=== PATIENT | female | born 1965 | race Caucasian/White ===

== ENCOUNTER 2018-01-15 07:24 | Day surgery (SDC) | payer OTHER ==
--- NOTE | 2018-01-14 15:32 | RAD REPORT ---
EXAM DESCRIPTION: RAD - Chest Pa And Lat (2 Views) - 01/14/2018 3:20 pm CLINICAL HISTORY: preop Chest pain. COMPARISON: No comparisons FINDINGS: The lungs are clear. The heart is normal in size. No displaced fractures. IMPRESSION: No acute or concerning finding suspected.
[2018-01-14 15:38] LABS: Absolute Monocytes 0.6 K/uL (0.1-1.3); Absolute Neutrophil 3.2 K/uL (1.8-8.0); Basophils % 0.5 % (0-1.3); Eosinophils % 3.3 % (0-4.4); Hematocrit 36.7 % (36.0-45.0); Lymphocytes % 33.5 % (15.3-44.8); MCH 31.1 pg (27.0-35.0); MCV 92.2 fL (80-100); MPV 7.8 fL (7.6-11.3); Monocytes % 9.5 % (3.3-12.3); RBC Red Blood Cell Count 3.99 M/uL (3.86-4.86)
[2018-01-14 15:52] LABS: ALT/SGPT 19 U/L (12-78); AST/SGOT 13 U/L (15-37); Albumin 3.9 g/dL (3.4-5.0); Alkaline Phosphatase 61 U/L (45-117); Amylase Level 36 U/L (25-115); BUN Blood Urea Nitrogen 13 mg/dL (7-18); Bicarbonate 31 mmol/L (21-32); Bilirubin Direct 0.2 mg/dL (0-0.2); Bilirubin Total 0.7 mg/dL (0.2-1.0); Glucose Level 84 mg/dL (74-106); Lipase 158 U/L (73-393); Potassium 3.4 mmol/L (3.5-5.1); Protein, Total 6.6 g/dL (6.4-8.2); Sodium Level 144 mmol/L (136-145)
--- NOTE | 2018-01-15 06:53 | EKG ---
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
[2018-01-15] MEDS ORDERED: Ringers Lactate 1,000 ML IV ONE ×2 (08:35→10:04)
[2018-01-15] MEDS ORDERED: CEFOXITIN/SWI 1gm 1 GM/10 ML SYR ONE (08:35)
[2018-01-15] MEDS ORDERED: MIDAZOLAM HCL 2 MG/2 ML INJ ONE (08:57)
[2018-01-15] MEDS ORDERED: PROPOFOL 200 MG/20 ML VIAL IV ONE (08:57)
[2018-01-15] MEDS ORDERED: ROCURONIUM 50 MG/5 ML VIAL IV ONE (08:58)
[2018-01-15] MEDS ORDERED: LIDOCAINE 2% MPF 5 ML VIAL ONE (08:58)
[2018-01-15] MEDS ORDERED: FENTANYL CITR 100 MCG/2 ML ONE ×2 (08:58→09:41)
[2018-01-15] MEDS ORDERED: ONDANSETRON HCL 40 MG/20 ML VIAL ONE (09:24)
[2018-01-15] MEDS ORDERED: DEXAMETHASONE 10 MG/ML VIAL ONE (09:24)
[2018-01-15] MEDS ORDERED: GLYCOPYRROLATE 0.2 MG/ML SYR ONE (09:24)
[2018-01-15] MEDS ORDERED: KETOROLAC 30 MG/ML INJ ONE (09:24)
[2018-01-15] MEDS ORDERED: NEOSTIGMINE 1 MG/ML -5 ML SYRINGE ONE (09:41)
--- NOTE | 2018-01-15 09:52 | P.BOP ---
Preoperative diagnosis: symptomatic cholelithiasis, acute cholecystitis Postoperative diagnosis: same Primary procedure: Laparoscopic cholecystectomy Estimated blood loss: <10cc Specimen: gb Findings: as above Anesthesia: General Complications: None Transferred to: Recovery Room Condition: Good
[2018-01-15] MEDS ORDERED: Mastisol Adhesive Liq ONE (09:53)
[2018-01-15] MEDS ORDERED: ONDANSETRON 4 MG/2 ML VIAL ONE (10:45)
[2018-01-15] MEDS ORDERED: CODEINE 30MG/APAP 300MG TAB ONE (11:20)
--- NOTE | 2018-01-15 13:57 | DS ---
Date of Discharge: 01/15/2018 Diagnoses: Acute cholecystitis, symptomatic cholelithiasis. Procedure: Laparoscopic cholecystectomy. Disposition: Home. Activity: As tolerated. No heavy lifting. Discharge Instructions: Follow up in my office in 1 week. Call for appointment [phone]. Keep the area dry for 48 hours, then may shower. Keep Steri-Strip intact. Medications: See orders. MANUEL/YAEL Voice ID: [id number] Report ID: [id number]
--- NOTE | 2018-01-15 13:57 | OP ---
Date of Procedure: 01/15/2018 Surgeon: Jeffery Levi MD Preoperative Diagnoses: Symptomatic cholelithiasis, acute cholecystitis. Postoperative Diagnoses: Symptomatic cholelithiasis, acute cholecystitis. Procedure: Laparoscopic cholecystectomy. Anesthesia: General plus local. Findings: As above. Indications: This is a case of a 52-year-old patient, who comes to us with acute abdominal pain. Be nefits, alternative, and risks of laparoscopic, possible open cholecystectomy were fully explained, w hich include but are not limited to infection, bleeding, damage to adjacent structures, anesthesia co mplication, choledocholithiasis, bile leak, pancreatitis, MN, and even . She also understood th is may not relieve any symptoms. They may need more than one surgical intervention. She understood, signed a consent. Description Of Procedure: The patient was brought to the operating room, placed in supine position. Anesthesia was done without complication. Abdominal area was prepped and draped in a sterile fashio n. Marcaine 0.5% injected for local anesthetic, followed by sharp incision of the skin in the perium bilical region. Incision was carried down to fascia, which was opened under direct vision. Peritone um was encountered, opened under direct vision. Vicryl #1 placed inside the fascia. Marquis trocar w as carefully introduced. Pneumoperitoneum was obtained. I placed 3 more trocars, 5 mm each one of t hem in the right upper quadrant under direct visualization. I put a grasper in the fundus of the gal lbladder, another grasper in the infundibulum, retracted the gallbladder in the inferolateral fashion exposing the triangle of Calot, obtaining critical view of safety. The cystic duct and cystic arter y were clearly isolated free circumferentially and a connection between those and the gallbladder wer e clearly identified. I proceeded to ligate those by using 3 clips proximal, 1 clip distal, ligation in middle. Same was done with the cystic artery. More tiny branch of the cystic artery was also li gated using the same technique. Hepatic arteries and common bile duct were protected at all times. The area was inspected once again. The gallbladder was removed from liver using Bovie cauterizer and removed from abdominal cavity using an EndoCatch through the umbilical incision. The area was inspe cted once again. No bile leak. No bleeding. Clips were intact. At that moment, I proceeded to rem ove the trocars under direct vision. Deflated Pneumoperitoneum. Closed the fascia with #1 Vicryl. Irrigated with subcutaneous tissue, closed that with 3-0 chromic and skin in a subcuticular fashion w ith 3-0 chromic and Steri-Strips on top. Sponge count and instrument counts were correct. The patie nt tolerated the procedure well. The patient was sent to Recovery in stable condition. MANUEL/YAEL Voice ID: [id number] Report ID: [id number]
== END 2018-01-15 12:15 | disposition home or self-care (01) ==
LOC: OR 07:24
PROVIDERS: ATTEND Surgery
PROC: 0FT44ZZ Resection of Gallbladder, Percutaneous Endoscopic Approach (ICD-10-PCS; principal; 2018-01-15 09:15)
DX: K80.12 Calculus of gallbladder with acute and chronic cholecystitis without obstruction (principal); Z98.84 Bariatric surgery status; Z83.3 Family history of diabetes mellitus; Z82.49 Family history of ischemic heart disease and other diseases of the circulatory system; Z80.9 Family history of malignant neoplasm, unspecified
CPT/HCPCS: 36415; 71046; 80048; 80076; 82150; 83690; 85025; 88304; 93005; J1100; J2250; J2405; J2710; J3010

== ENCOUNTER 2018-04-01 09:36 | Day surgery (SDC) | payer OTHER ==
[2018-04-01] MEDS ORDERED: Zoledronic Acid/Mannitol/Water 5 MG/100 ML INFUS.BOT IV NR (11:00)
== END 2018-04-01 10:59 | disposition home or self-care (01) ==
LOC: DS 09:36
PROVIDERS: ATTEND Specialist
DX: M81.0 Age-related osteoporosis without current pathological fracture (principal); K22.70 Barrett's esophagus without dysplasia
CPT/HCPCS: 36415; 82565; 96365; J3489